=== PATIENT | male | born 1950 | race Caucasian/White ===

== ENCOUNTER 2017-12-26 13:20 | Emergency (ER) | END 2017-12-26 17:13 | disposition home or self-care (01) ==

== ENCOUNTER 2018-06-10 06:38 | Emergency (ER) | END 2018-06-10 08:25 | disposition home or self-care (01) ==

== ENCOUNTER 2018-08-15 11:11 | Emergency (ER) | END 2018-08-15 14:54 | disposition home or self-care (01) ==

== ENCOUNTER → 2018-10-29 | Emergency (ER) | payer MEDICARE ==
[~2018-10-29] VITALS: Wt 74.3 kg
[~2018-10-29] MED LIST: ACYC800T PO; CEPH-443 PO; CIPR500T4 PO; TAMS-14 PO
--- NOTE | 2018-10-29 18:06 | ERD ---
ER Documentation Chief Complaint Chief Complaint REQUESTING CATH CHANGE STATES LAST CHANGE [id number] AGO HPI 67-year-old male presents requesting Christina catheter change for history of prostatism. He denies any fevers, dysuria, additional symptoms. He did have a cough and cold last week and developed a rash on his left flank. He is otherwise has no additional complaints. He has had trouble seeing a urologist due to frequent changes of address and insurance. He has had the catheter for several months and has it changed every 1-3 months. ROS All systems reviewed and are negative except as per history of present illness. Medications Home Meds Active Scripts Acyclovir* (Acyclovir*) 800 Mg Tablet, 800 MG PO 5 TIMES DAILY for 7 Days, TAB Prov:MATT BELL MD 10/29/18 Cephalexin* (Keflex*) 500 Mg Capsule, 500 MG PO BID, #14 CAP Prov:GENNA BOYD MD 08/15/18 Ciprofloxacin Hcl* (Ciprofloxacin Hcl*) 500 Mg Tablet, 500 MG PO BID for 10 Days, TAB Prov:ADÁN LINCOLN MD 06/10/18 Tamsulosin Hcl* (Flomax*) 0.4 Mg Cap.er.24h, 0.4 MG PO QPM, #30 CAP Prov:STEWART ACUÑA MD 12/26/17 Ciprofloxacin Hcl* (Ciprofloxacin Hcl*) 500 Mg Tablet, 500 MG PO BID for 10 Days, TAB Prov:STEWART ACUÑA MD 12/26/17 Allergies Allergies: Coded Allergies: No Known Allergy (Unverified , 12/26/17) PMhx/Soc History of Surgery: Yes (melanoma CA removed left ear) Anesthesia Reaction: No Hx Neurological Disorder: No Hx Respiratory Disorders: No Hx Cardiac Disorders: No Hx Psychiatric Problems: Yes (depression) Hx Miscellaneous Medical Probl: Yes (BPH, prostatitis) Hx Substance Use: No Hx Tobacco Use: Yes Smoking Status: Never smoker FmHx Family History: No diabetes, No coronary disease, No other Physical Exam Vitals Vital Signs Date Temp Pulse Resp B/P (MAP) Pulse Ox O2 O2 Flow FiO2 Time Delivery Rate 10/29/18 98.0 109 20 150/78 96 15:00 (102) Physical Exam Const: No acute distress Head: Atraumatic Eyes: Normal Conjunctiva ENT: Normal External Ears, Nose and Mouth. Neck: Full range of motion. No meningismus. Resp: Clear to auscultation bilaterally Cardio: Regular rate and rhythm, no murmurs Abd: Soft, non tender, non distended. Normal bowel sounds Skin: No petechiae or purpura. Vesicular erythematous lesion and a left flank area. No streaking induration or abdominal tenderness. Back: No midline or flank tenderness Ext: No cyanosis, or edema Neur: Awake and alert Psych: Normal Mood and Affect Procedures/MDM Patient presents with a history of chronic urinary retention. Christina catheter was changed without complications. He has signs of zoster on his left flank as well. Will treat with acyclovir and recommendations for urology follow-up and primary care. He has no signs of abdominal pain, chest pain, fever, complications of his chronic medical conditions. He does not have any signs or symptoms to suggest UTI, pyelonephritis, surgical abdomen. The patient was stable with no new complaints during the ER course. Clinically, there is no current evidence to suggest meningitis, sepsis, acute abdomen, pneumonia, stroke, acute coronary syndrome, pulmonary embolism, aortic dissection or any other emergent condition appearing to require further evaluation or hospitalization. Patient counseled regarding my diagnostic impression and care plan. Prior to discharge all questions answered. Pt agrees with treatment plan and understands strict return precautions. Pt is instructed to follow up with primary care provider within 24-48 hours. Precautionary instructions provided including instructions to return to the ER if not improving or for any worsening or changing symptoms or concerns. Departure Diagnosis: Primary Impression: Shingles Herpes zoster complications: without complications Qualified Codes: B02.9 - Zoster without complications Additional Impression: Encounter for urinary catheter Condition: Stable Patient Instructions: Christina Catheter, Care Referrals: HORTENSIA LARRY MD Additional Instructions: See urologist for further evaluation and treatment. Recheck for fevers, vomiting, new worsening symptoms. MATT BELL MD Oct 29, 2018 18:06
== END | disposition home or self-care (01) ==
LOC: FTE 14:54
DX: B02.9 Zoster without complications (principal); Z46.6 Encounter for fitting and adjustment of urinary device; Z85.820 Personal history of malignant melanoma of skin; Z87.891 Personal history of nicotine dependence

== ENCOUNTER 2018-12-19 18:34 | Emergency (ER) | payer MEDICARE ==
[~2018-12-19] VITALS: Ht 175.3 cm; Wt 97.5 kg
[2018-12-19 18:59] VITALS: Ht 175.3 cm; Wt 97.5 kg
[2018-12-19] MEDS ORDERED: CIPR500T4 PO (20:24)
--- NOTE | 2018-12-19 22:22 | ERD ---
ER Documentation Chief Complaint Chief Complaint per pt guerrero needs to be changed 1/mo; has been in for 2 mo; no PCP HPI Patient is a [age]-year-old male with a history of prostate issues and chronic indwelling Guerrero catheter who presents to change his Guerrero catheter. He said that he has had this Guerrero catheter in for the past 2 months and wants it replaced. He has no fevers or any symptoms other than having some foul urine smell. He thinks he might have a urine infection. Upon review of old medical records this is the patient's fifth visit to the ER since 2018. He does not currently have a primary doctor or a urologist. ROS All systems reviewed and are negative except as per history of present illness. Medications Home Meds Active Scripts Ciprofloxacin Hcl* (Ciprofloxacin Hcl*) 500 Mg Tablet, 500 MG PO BID for 7 Days, TAB Prov:CELIA SANDERS MD 12/19/18 Acyclovir* (Acyclovir*) 800 Mg Tablet, 800 MG PO 5 TIMES DAILY for 7 Days, TAB Prov:MATT BELL MD 10/29/18 Cephalexin* (Keflex*) 500 Mg Capsule, 500 MG PO BID, #14 CAP Prov:GENNA BOYD MD 08/15/18 Ciprofloxacin Hcl* (Ciprofloxacin Hcl*) 500 Mg Tablet, 500 MG PO BID for 10 Days, TAB Prov:ADÁN LINCOLN MD 06/10/18 Tamsulosin Hcl* (Flomax*) 0.4 Mg Cap.er.24h, 0.4 MG PO QPM, #30 CAP Prov:STEWART ACUÑA MD 12/26/17 Ciprofloxacin Hcl* (Ciprofloxacin Hcl*) 500 Mg Tablet, 500 MG PO BID for 10 Days, TAB Prov:STEWART AUCÑA MD 12/26/17 Allergies Allergies: Coded Allergies: No Known Allergy (Unverified , 12/26/17) PMhx/Soc History of Surgery: Yes (melanoma CA removed left ear) Anesthesia Reaction: No Hx Neurological Disorder: No Hx Respiratory Disorders: No Hx Cardiac Disorders: No Hx Psychiatric Problems: Yes (depression) Hx Miscellaneous Medical Probl: Yes (BPH, prostatitis) Hx Substance Use: No Hx Tobacco Use: Yes Smoking Status: Current every day smoker FmHx Family History: diabetes Physical Exam Vitals Vital Signs Date Temp Pulse Resp B/P (MAP) Pulse Ox O2 O2 Flow FiO2 Time Delivery Rate 12/19/18 97.0 107 18 136/93 96 18:59 (107) Physical Exam Const: No acute distress Head: Atraumatic Eyes: Normal Conjunctiva ENT: Normal External Ears, Nose and Mouth. Neck: Full range of motion. No meningismus. Resp: Clear to auscultation bilaterally Cardio: Regular rate and rhythm, no murmurs Abd: Soft, non tender, non distended. Normal bowel sounds Skin: No petechiae or rashes Back: No midline or flank tenderness Ext: No cyanosis, or edema Neur: Awake and alert : Guerrero catheter in place without issues Results 24 hrs Laboratory Tests Test 12/19/18 20:02 Bedside Urine pH (LAB) 8.5 Bedside Urine Protein (LAB) 1+ Bedside Urine Glucose (UA) Negative Bedside Urine Ketones (LAB) Negative Bedside Urine Blood 2+ Bedside Urine Nitrite (LAB) Positive Bedside Urine Leukocyte Esterase (L 1+ Procedures/MDM Urine dip was positive for infection. Patient is a 68-year-old male presents for Guerrero catheter change. The patient's Guerrero catheter was placed in the emergency department and his urine dip was found to be positive for infection. He will be given 1 week of Cipro. I told him that he cannot keep return to the ER to have this replaced and he should follow-up with a primary doctor and a urologist. I have given him information for both Dr. Myles and Dr. Larry. He can return for any worsening symptoms. Departure Diagnosis: Primary Impression: Cystitis Additional Impression: Guerrero catheter problem Encounter type: initial encounter Qualified Codes: T83.9XXA - Unspecified complication of genitourinary prosthetic device, implant and graft, initial encounter Condition: Fair Patient Instructions: Cystitis, Guerrero Catheter, Care Referrals: HORTENSIA LARRY MD, SRIDHAR MD Additional Instructions: SPECIALIST: YOU HAVE A MEDICAL CONDITION WHICH REQUIRES YOU TO SEE A SPECIALIST WITHIN THE NEXT 1-2 DAYS. PLEASE FOLLOW UP WITH YOUR PRIMARY PHYSICIAN FOR REFFERAL.IF YOU DO NOT HAVE A PRIMARY CARE PHYSICIAN AND/OR YOU CAN NOT AFFORD TO SEE A PHYSICIAN THE FOLLOWING RESOURCES HAVE BEEN SUPPLIED TO YOU. IT IS YOUR RESPONSIBILITY TO BE SEEN BY THE SPECIALIST CELIA SANDERS MD Dec 19, 2018 22:22
== END 2018-12-19 21:12 | disposition home or self-care (01) ==
LOC: E/R 18:34
DX: T83.098A Other mechanical complication of other urinary catheter, initial encounter (principal); N30.90 Cystitis, unspecified without hematuria; F17.210 Nicotine dependence, cigarettes, uncomplicated; Y73.2 Prosthetic and other implants, materials and accessory gastroenterology and urology devices associated with adverse incidents; Z85.828 Personal history of other malignant neoplasm of skin
CPT/HCPCS: 81003